=== PATIENT | male | born 1980 | race Caucasian/White ===

== ENCOUNTER → 2019-05-23 14:37 | Outpatient (CLI) | payer OTHER, SELFPAY ==
--- NOTE | ~2019-05-23 | XR_ITS ---
XR foot RT 2V, XR foot LT 2V 05/23/2019 15:36 Indication: Foot pain Procedure: 2 views each foot Comparison: No prior studies for comparison. Findings: Normal mineralization. No fracture, subluxation or dislocation. Lisfranc joint intact bilat erally. No focal soft tissue abnormality. No foreign bodies. Impression: 1: No significant bone or joint abnormality. Reviewed, dictated and finalized at location A. K MAINTAINER Impression: 1: No significant bone or joint abnormality. Impression: 1: No significant bone or joint abnormality.
--- NOTE | ~2019-05-23 | XR_ITS ---
XR wrist LT 2V 05/23/2019 15:36 INDICATION: Left wrist pain PROCEDURE: 2 views left wrist COMPARISON: No prior studies for comparison. FINDINGS: Fracture, dislocation or subluxation is not identified. The soft tissues appear within norm al limits. No foreign bodies are identified. IMPRESSION: 1: NO ACUTE BONE OR JOINT ABNORMALITY IDENTIFIED. Reviewed, dictated and finalized at location A. ER
== END ==
PROVIDERS: PCP Family Medicine; Visit Provider Nurse Practitioner Family
DX: M79.672 Pain in left foot (principal); M79.671 Pain in right foot; M25.532 Pain in left wrist
CPT/HCPCS: 73100; 73620

== ENCOUNTER → 2020-07-17 10:24 | Outpatient (CLI) | payer OTHER, SELFPAY ==
--- NOTE | ~2020-07-17 | XR_ITS ---
XR sacroiliac joints min 3V DATE: 07/17/2020 10:51 INDICATION: Psoriasis TECHNIQUE: Multiple views COMPARISON: None FINDINGS: No fracture or dislocation, erosion, ankylosis or degenerative changes noted at the sacroil iac joints. IMPRESSION: Negative Reviewed, dictated and finalized at Location A. Reviewed, dictated and finalized at location A. IMPRESSION: Negative
== END ==
PROVIDERS: Visit Provider Internal Medicine
DX: L40.50 Arthropathic psoriasis, unspecified (principal)
CPT/HCPCS: 72202

== ENCOUNTER → 2020-07-24 13:10 | Outpatient (CLI) | payer OTHER, SELFPAY ==
--- NOTE | ~2020-07-24 | XR_ITS ---
EXAMINATION: XR chest 2V DATE: 07/24/2020 14:11 INDICATION: Nonspecific reaction to tuberculin skin test. TECHNIQUE: PA and lateral views of the chest were obtained. COMPARISON: None FINDINGS: The lungs are clear with no focal airspace opacities, pulmonary edema, pleural effusion or pneumothor ax. The cardiomediastinal silhouette is normal. Visualized bones and soft tissues are unremarkable. IMPRESSION: 1. No acute cardiopulmonary disease. Reviewed, dictated and finalized at location A.
== END ==
PROVIDERS: PCP Family Medicine; Visit Provider Internal Medicine
DX: R76.11 Nonspecific reaction to tuberculin skin test without active tuberculosis (principal)
CPT/HCPCS: 71046

== ENCOUNTER 2021-12-04 16:53 | Emergency (ER) | payer OTHER, SELFPAY ==
--- NOTE | ~2021-12-04 | XR_ITS ---
EXAM: XR forearm LT 2V DATE: 12/04/2021 17:34 HISTORY: FB left forearm. METAL CHIP FROM HAMMER DISTAL LEFT FOREARM. . COMPARISON: None available. FINDINGS: Normal mineralization. No fracture or dislocation. No lytic or blastic lesion. Joint space s and physes are maintained. No erosion or periosteal change. 4 mm curvilinear radiodensity in the an terolateral forearm soft tissues at the level of the junction of the middle and distal thirds of the radius. IMPRESSION: Curvilinear radiopaque foreign body in the anterolateral soft tissues of the distal forea rm. No acute osseous finding. Reviewed, dictated and finalized at location K. IMPRESSION: Curvilinear radiopaque foreign body in the anterolateral soft tissu es of the distal forearm. No acute osseous finding.
[2021-12-04 17:00] VITALS: BP 160/85; PULSE 92; RESP 18; TEMP 36.4; O2SAT 97
--- NOTE | 2021-12-04 17:18 | ED.UPPEXIN ---
HPI - Extremity Injury (Upper) General Chief Complaint: Wound/Laceration Stated Complaint: hammer splinter in L arm Time Seen by Provider: 12/04/21 17:18 Source: patient Mode of arrival: ambulatory History of Present Illness HPI narrative: 41 year old male was using a hammer when a speck of metal flew off into his left forearm. he presents with pain and swelling over his left forearm. normal range of motion. MD complaint: injury to: left and forearm Onset (ago): minute(s) ( 30 minutes ago) Other injuries: none Handedness: right Place: work Severity: mild Relieving factors: none Context: direct blow Associated symptoms: denies other symptoms Related Data Allergies Allergy/AdvReac Type Severity Reaction Status Date / Time No Known Allergies Allergy Verified 12/04/21 17:48 Review of Systems Review of Systems: All systems reviewed & are unremarkable except as noted in HPI and below Constitutional: Constitutional: Reports as per HPI and Reports no additional constitutional complaints Eyes: Eyes: Reports as per HPI and Reports no additional eye complaints ENT: Reports system reviewed and no additional complaints, except as documented Cardiovascular: Cardiovascular: Reports as per HPI and Reports no additional cardiovascular complaints Respiratory: Respiratory: Reports as per HPI and Reports no additional respiratory complaints Gastrointestinal: Gastrointestinal: Reports as per HPI and Reports no additional gastrointestinal complaints Genitourinary: Genitourinary: Reports no additional male genitourinary complaints and Reports as per HPI Musculoskeletal: Musculoskeletal: Reports no additional musculoskeletal complaints and Reports as per HPI Integumentary/Breasts: Comments: left forearm contusion/ swelling with a 5 mm area of skin breakdown Neurologic: Reports system reviewed and no additional complaints, except as documented and Reports as per HPI Psychiatric: Psychiatric: Reports no additional psychiatric complaints and Reports as per HPI Endocrine: Endocrine: Reports no additional endocrine complaints and Reports as per HPI Hematologic/Lymphatic: Hematologic/Lymphatic: Reports no additional hematologic/lymphatic complaints and Reports as per HPI Allergic/Immunologic: Allergic/Immunologic: Reports no additional allergic/immunologic complaints and Reports as per HPI [facility] Past Medical History Medical History BMI 29.0-29.9,adult COVID False positive QuantiFERON-TB Gold test (~2020) History of latent tuberculosis Psoriatic arthritis (~2016) Transaminitis Surgical History Surgical History H/O hand surgery Hx of tonsillectomy Family History Family History Mother Cancer Father Heart attack Grandparent Cancer of kidney Other Diabetes mellitus Social History Social History Smoking status: Current every day smoker Tobacco type: smokeless tobacco Alcohol intake: current Exam Const: General: no acute distress Orientation/consciousness: patient oriented x3 HENMT: Head: normal to inspection Ears: external ears normal General nose exam: Normal external nose present Face and sinus: normal facial exam Mouth: Yes Normal oral and palatal mucosa present Throat: posterior oropharynx normal Eyes: Conjunctivae: conjunctivae normal Pupils: Equal, round and reactive pupils present EOM: EOMs intact bilaterally Direct Ophthalmoscopy: no photophobia Neck: Neck: normal visual inspection, no lymphadenopathy and no meningeal signs Chest: Chest palpation & inspection: normal inspection of the chest Resp: Effort & Inspection: normal respiratory effort Auscultation: clear to auscultation bilaterally Cardio: Rate: regular rate Rhythm: regular rhythm GI:
[2021-12-04] MEDS: TETANUS,DIPHTHERIA,AC PERTUSSIS ADULT 0.5 ML (ADACEL) IM (17:41)
--- NOTE | 2021-12-04 18:54 | PC.NURSE ---
1830 PT RESTING IN ROOM AWAITING FOR XRAY RESULTS. UPDATED ON WAITING FOR XRAY RESULTS.
[2021-12-04] MEDS: CEPHALEXIN 500 MG CAPSULE 1000 MG PO (18:55)
== END 2021-12-04 19:01 | disposition home or self-care (01) ==
PROVIDERS: Emergency Provider Internal Medicine Critical Care Medicine; PCP Family Medicine
DX: S50.12XA Contusion of left forearm, initial encounter (principal); S51.842A Puncture wound with foreign body of left forearm, initial encounter; W27.8XXA Contact with other nonpowered hand tool, initial encounter
CPT/HCPCS: 73090; 90471; 90715; 99283; A9270

== ENCOUNTER 2024-07-24 15:09 | Outpatient (CLI) | payer OTHER, SELFPAY ==
--- NOTE | ~2024-07-24 | XR_ITS ---
XR sacroiliac joints min 3V Ordering provider: Karley Red MD History: . Rheumatoid arthritis, unspecified . Comparison: None. FINDINGS: BONES: No acute fracture or dislocation. Degenerative changes of the spine. There JOINTS: The bilateral sacroiliac joint spaces appear well maintained. No bony fusion of the sacroilia c joints or bony erosions. SOFT TISSUES: Unremarkable. IMPRESSION: NO ACUTE OSSEOUS ABNORMALITY. NORMAL SACROILIAC JOINTS. Reviewed, dictated and finalized at location A.
--- NOTE | ~2024-07-24 | XR_ITS ---
3 VIEWS LUMBAR SPINE Ordering provider: Karley Red MD History: . Rheumatoid arthritis, unspecified . Comparison: None. FINDINGS: VERTEBRAL BODIES: No visible fracture or subluxation. Degenerative changes of the spine. DISK SPACES: Narrowing of the disc L2-L3, L3-L4, L4-L5 and L5-S1.. Degenerative disease at the level of L4-L5 and L5-S1. SOFT TISSUES: Normal. IMPRESSION: No acute osseous abnormality lumbar spine. Multilevel degenerative disc disease. Reviewed, dictated and finalized at location A.
== END 2024-07-24 15:10 | disposition home or self-care (01) ==
PROVIDERS: PCP Family Medicine; Visit Provider Internal Medicine
DX: M06.9 Rheumatoid arthritis, unspecified (principal); M51.369 Other intervertebral disc degeneration, lumbar region without mention of lumbar back pain or lower extremity pain
CPT/HCPCS: 72100; 72202